=== PATIENT | female | born 1995 | race Caucasian/White ===

== ENCOUNTER 2018-05-26 13:03 | Emergency (ER) | payer OTHER ==
[2018-05-26 13:18] VITALS: BP 117/63
--- NOTE | 2018-05-26 13:45 | UC ---
Skin Complaint HPI - HPI Summary HPI Summary: pt is visiting grandparents and slept on their couch, next day had itchy bumps on feet, leg, and L hand. got worse next day. took benadryl with little relief. house has had bed bugs in past - History of Current Complaint Chief Complaint: UCRash Time Seen by Provider: 05/26/18 13:26 Stated Complaint: RASH Hx Obtained From: Patient Hx Last Menstrual Period: one month ago ?: No Onset/Duration: Sudden Onset Onset Severity: Mild Current Severity: Mild Pain Intensity: 1 Location: Hand (Left), Foot (Right), Foot (Left) Character: Pruritus, Raised Aggravating Factor(s): Nothing Alleviating Factor(s): Nothing Associated Signs & Symptoms: Positive: Negative - Allergy/Home Medications Allergies/Adverse Reactions: Allergies Allergy/AdvReac Type Severity Reaction Status Date / Time No Known Allergies Allergy Verified 05/26/18 13:18 Home Medications: Home Medications NK [No Home Medications Reported] 05/26/18 [History Confirmed 05/26/18] Review of Systems Constitutional: Negative Skin: Rash Respiratory: Negative Cardiovascular: Negative Neurological: Negative Psychological: Negative Is Patient Immunocompromised?: No All Other Systems Reviewed And Are Negative: Yes PMH/Surg Hx/FS Hx/Imm Hx Previously Healthy: Yes - Surgical History Surgical History: None - Family History Known Family History: Positive: None Negative: Hypertension, Diabetes - Social History Occupation: Employed Full-time Lives: With Family Alcohol Use: Occasionally Substance Use Type: None Smoking Status (MU): Never Smoked Tobacco Physical Exam Triage Information Reviewed: Yes Appearance: Well-Appearing, No Pain Distress, Well-Nourished Vital Signs: Initial Vital Signs Temp 97.9 F 05/26/18 13:16 Pulse 72 05/26/18 13:16 Resp 12 05/26/18 13:16 BP 117/63 05/26/18 13:16 Pulse Ox 100 05/26/18 13:16 Vital Signs Reviewed: Yes Eyes: Positive: Conjunctiva Clear ENT: Positive: Normal ENT inspection, Pharynx normal Respiratory Exam: Normal Cardiovascular Exam: Normal Psychological Exam: Normal Skin: Positive: rashes - single mildly erythemic, raised lesions, many in rows of 3 on L UE and bilateral dorsal feet Course/Dx - Differential Diagnoses - Skin Complaint Differential Diagnoses: Drug Rash, Poison Nancy, Scabies, Other - bed bugs - Diagnoses Provider Diagnoses: rash. probable bed bugs Discharge - Sign-Out/Discharge Documenting (check all that apply): Patient Departure All imaging exams completed and their final reports reviewed: No Studies - Discharge Plan Condition: Good Disposition: HOME Patient Education Materials: Bed Bugs (ED) Referrals: No Primary Care Phys,NOPCP [Primary Care Provider] - Additional Instructions: apply Blue EMU cream with lidocaine to bites also use over the counter zyrtec or claritin for itching Report worsening symptoms - Billing Disposition and Condition Condition: GOOD Disposition: Home
== END 2018-05-26 13:55 | disposition home or self-care (01) ==
LOC: UCEAST 13:03
DX: R21 Rash and other nonspecific skin eruption (principal)
CPT/HCPCS: 99201; G0463